=== PATIENT | female | born 1995 | race African-American/Black ===

== ENCOUNTER 2019-07-20 00:55 | Emergency (ER) | payer SELFPAY ==
[~2019-07-20] VITALS: Ht 160 cm; Wt 57.2 kg
[2019-07-20 00:59] VITALS: Ht 160 cm; Wt 57.2 kg
[2019-07-20 02:37] VITALS: BP 117/75
== END 2019-07-20 02:37 | disposition home or self-care (01) ==
LOC: ED 00:55
DX: J40 Bronchitis, not specified as acute or chronic (principal); J06.9 Acute upper respiratory infection, unspecified